=== PATIENT | male | born 1965 | race Caucasian/White ===

== ENCOUNTER 2016-10-11 15:05 | Emergency (ER) | payer OTHER ==
[2016-10-11 15:46] VITALS: BP 163/106
[2016-10-11] MEDS ORDERED: Ketorolac 30 MG/ML SDV ONE (18:47)
== END 2016-10-11 15:25 | disposition home or self-care (01) ==
LOC: LB.ED 15:05
DX: R03.0 Elevated blood-pressure reading, without diagnosis of hypertension (principal)
CPT/HCPCS: 99283

== ENCOUNTER 2023-04-23 13:33 | Emergency (ER) | payer BC ==
[2023-04-23] MEDS ORDERED: Ketorolac 60 MG/2 ML SDV IM ONE ×2 (13:59→14:01)
[2023-04-23] MEDS ORDERED: Bacitracin Oint 1 GM U/D Packet TOP ONE (14:34)
[2023-04-23] MEDS ORDERED: Diphtheria,Pertussis(Acell),Tetanus Vaccine 0.5 ML Syringe IM ONE (14:56)
== END 2023-04-23 14:57 | disposition home or self-care (01) ==
LOC: LB.ED 13:33
DX: S00.03XA Contusion of scalp, initial encounter (principal); Z23 Encounter for immunization; Z79.899 Other long term (current) drug therapy; W22.8XXA Striking against or struck by other objects, initial encounter
CPT/HCPCS: 70450; 90471; 90715; 96372; 99283; J1885

== ENCOUNTER 2024-03-04 12:57 | Emergency (ER) | payer BC ==
[2024-03-04] MEDS: Lidocaine 1% 5 ML VIAL INJECT ONE (14:35)
[2024-03-04] MEDS: Diphtheria,Pertussis(Acell),Tetanus Vaccine 0.5 ML Syringe IM ONE (14:36)
== END 2024-03-04 13:55 | disposition home or self-care (01) ==
LOC: LB.ED 12:57
DX: S61.210A Laceration without foreign body of right index finger without damage to nail, initial encounter (principal); Z23 Encounter for immunization; Z79.899 Other long term (current) drug therapy; W29.3XXA Contact with powered garden and outdoor hand tools and machinery, initial encounter
CPT/HCPCS: 12001; 90471; 90715; 99282-25; 99283